=== PATIENT | male | born 1945 | race Caucasian/White ===

== ENCOUNTER 2021-02-01 19:31 | Emergency (ER) | payer MEDICARE ==
[~2021-02-01] VITALS: Ht 182.9 cm; Wt 158.8 kg
[~2021-02-01 19:31] MED LIST: HYDROCODON-ACE1 EAC4 PO
[2021-02-01 20:01] LABS: RED BLOOD COUNT 3.94 M/UL (4.20-5.50)
== END 2021-02-02 01:50 | disposition other institution (70) ==
LOC: ER1 19:31
PROVIDERS: Emergency Medicine
DX: R07.89 Other chest pain (principal); R47.81 Slurred speech; R11.2 Nausea with vomiting, unspecified; I10 Essential (primary) hypertension; E66.01 Morbid (severe) obesity due to excess calories; Z20.822 Contact with and (suspected) exposure to COVID-19
CPT/HCPCS: 70450; 70496; 70498; 71045; 80053; 82550; 82553; 84484; 85025; 85610; 85730; 93005; 96374; 96375; 99285; J1644; J2060; Q9967; U0002